=== PATIENT | female | born 1990 | race Caucasian/White ===

== ENCOUNTER 2019-01-31 14:16 | Emergency (ER) | payer SELFPAY ==
[~2019-01-31] VITALS: Ht 162.6 cm; Wt 46.7 kg
--- NOTE | 2019-01-31 14:25 | NUR ---
WINSOME, HOMELESS, WAS IN A PRIVATE ESTABLISHMENT HAVING BIZAARE BEHAVIOR, TO ER BED 15, PT'S PANTS WERE DOWN WHEN BROUGHT TO THE EMERGENCY DEPT, BLANK STARE WHEN SPOKEN TO, DOES NOT REMEMBER WHAT HAPPENED, VITAL SIGNS CHECKED AND WIRES REMOVED AFTERWARDS, PLACED ON SUICIDE PRECAUTIONS.
--- NOTE | 2019-01-31 14:30 | NUR ---
LATOYA GALEANO AT BEDSIDE
--- NOTE | 2019-01-31 14:40 | NUR ---
PT HAS NO SUICIDAL THOUGHTS. "I HAVEN'T THOUGHT ABOUT IT".
[2019-01-31 14:55] LABS: BASOPHILS # (AUTO) 0.1 /CMM (0.0-0.2); BASOPHILS % (AUTO) 1.2 % (0.0-2.0); EOSINOPHILS % (AUTO) 0.1 % (0.0-6.0); HEMATOCRIT 38 % (33-45); HEMOGLOBIN 12.8 g/dL (11.5-14.8); LYMPHOCYTES # (AUTO) 0.8 /CMM (0.8-4.8); LYMPHOCYTES % (AUTO) 13.5 % (20.0-44.0); MEAN CORPUSCULAR HGB CONC 34 g/dl (31.0-36.0); MEAN CORPUSCULAR VOLUME 91 fL (82-100); MONOCYTES # (AUTO) 0.8 /CMM (0.1-1.30); MONOCYTES % (AUTO) 13.4 % (2.0-12.0); NEUTROPHILS # (AUTO) 4.4 /CMM (1.8-8.9); NEUTROPHILS % (AUTO) 71.8 % (43.0-81.0); PLATELET COUNT (AUTO) 237 /CMM (150-450); RED BLOOD CELL COUNT(AUTO) 4.17 MIL/uL (4.0-5.2); WHITE BLOOD COUNT (AUTO) 6.1 K/uL (4.3-11.0)
--- NOTE | 2019-01-31 14:56 | NUR ---
LIZ ANGELES SPOKE WITH [employer]IV[employer] ENGINEERING DRAFTSPERSON #[id number]
[2019-01-31 15:02] LABS: CALCIUM, SERUM 8.4 mg/dL (8.5-10.1); CARBON DIOXIDE 28 mmol/L (21-32); CHLORIDE 105 mmol/L (98-107); CREATININE 0.7 mg/dL (0.6-1.3); GLUCOSE 98 mg/dL (74-106); POTASSIUM 3.7 mmol/L (3.5-5.1); SODIUM SERUM 139 mmol/L (136-145); UREA NITROGEN, BLOOD 7 mg/dL (7-18)
[2019-01-31 15:08] LABS: ACETAMINOPHEN < 2 ug/ml (10-30); ALANINE AMINOTRANSFERASE 19 U/L (12-78); ALCOHOL, BLOOD < 3 mg/dL (0-0); ALKALINE PHOSPHATASE 53 U/L (46-116); ASPARTATE AMINOTRANSFERASE 13 U/L (15-37); BILIRUBIN,DIRECT 0.1 mg/dL (0.0-0.2); BILIRUBIN,TOTAL 0.4 mg/dL (0.2-1.0); SALICYLATE 4.9 mg/dL (2.8-20.0)
--- NOTE | 2019-01-31 15:20 | NUR ---
PERIPHERAL IV LINE ESTABLISHED AT LAC 20G.
[2019-01-31] MEDS ORDERED: IV NS 0.9% 1,000 ML BAG IV ONE ×2 (15:30→17:00)
--- NOTE | 2019-01-31 15:30 | NUR ---
PROVIDED W SANDWICH AND WATER. PT PLACED FOOD AT THE SIDE OF BED AND TUCKED IN HER BLANKET.
--- NOTE | 2019-01-31 16:23 | NUR ---
KARTHIK BARROS AT BEDSIDE. PT IS NOT ABLE TO PROVIDE INFORMATION. KARTHIK SPOKE TO LANGUAGE TRANSLATOR AND WILL NOT BE ABLE TO DO INVESTIGATION WITH NO INFORMATION ABOUT THE PATIENT.
--- NOTE | 2019-01-31 16:25 | NUR ---
PT SIGNED WAIVER BUT CHECKED POSSIBILITY OF . LMP JANUARY 09 2019. MADE LATOYA GALEANO AWARE
--- NOTE | 2019-01-31 17:16 | NUR ---
provided w sandwich and water. tolerating PO well.
--- NOTE | 2019-01-31 18:52 | NUR ---
URINE SAMPLE SENT TO LAB
[2019-01-31 18:58] LABS: APPEARANCE,URINE Clear (CLEAR); BILIRUBIN,URINE SMALL (NEGATIVE); BLOOD, URINE Moderate Ery/uL (NEGATIVE); COLOR,URINE Dark (YELLOW); KETONES,URINE 40 (NEGATIVE); LEUKOCYTE ESTERASE ,URINE Negative (NEGATIVE); NITRITE, URINE Negative (NEGATIVE); PH,URINE 6.5 (5.0-8.0); PROTEIN,URINE 30 mg/dl (NEGATIVE); UGLUCOSE Negative (NEGATIVE)
[2019-01-31 19:15] LABS: BACTERIA,URINE Few /HPF (None Seen); MUCUS,URINE Few /LPF (None Seen); SQUAMOUS EPITHELIAL CELL,UR Few /HPF (None Seen); WBC,URINE 0-2 /HPF (0-3)
--- NOTE | 2019-01-31 19:20 | NUR ---
WHEELED OUT VIA [facility]NEY FOR CT SCAN
--- NOTE | 2019-01-31 20:30 | NUR ---
PET SITTING DEVIKA ZAPATA AT BEDSIDE
[2019-01-31 21:05] VITALS: BP 116/73
--- NOTE | 2019-01-31 21:06 | NUR ---
IV removed. Catheter intact and site benign. Pressure and 4x4 applied to site. No bleeding noted. Patient given written and verbal discharge instructions. Patient verbalizes understanding of instructions. Patient is ambulatory with steady gait. AOx3, Refuses offer of [facility] placement. Patient given list of available shelters in surrounding area. Signed homeless waiver. Provided w longsleeves and shoes.
== END 2019-01-31 21:16 | disposition home or self-care (01) ==
LOC: ER 14:29
DX: R46.1 Bizarre personal appearance (principal)
CPT/HCPCS: 36415; 70450; 80048; 80076; 80305; 80307; 80329; 81001; 82962 ×2; 84703; 85025; 99284; G0480; J7030 ×2; 81000-TC